=== PATIENT | female | born 1990 | race Caucasian/White ===

== ENCOUNTER 2016-12-01 16:31 | Emergency (ER) | payer OTHER ==
[~2016-12-01] VITALS: Ht 144.8 cm; Wt 90.3 kg
[~2016-12-01 16:31] MED LIST: DOCU-67 PO; IBUP-2213 PO; METO-485 PO; OMEP40EC1 PO; ONDA4TAB PO; PREN-385 PO; TYL3 PO
[2016-12-01 16:54] VITALS: BP 126/75
[2016-12-01] MEDS ORDERED: TOPI25TA10 PO (16:58)
--- NOTE | 2016-12-01 19:00 | NUR ---
PATIENT PRESENTS TO ED WITH LEFT SIDED HEADACHE AND N/V X4 DAYS . PT STATES [HEAVY VAGINAL BLEEDING YESTERDAY > 10 [facility] [place]/DAY SKIN IS PINK/WARM/DRY; AAOX4 WITH EVEN AND STEADY GAIT; LUNGS CLEAR BL; HR EVEN AND REGULAR; PT DENIES ANY FEVER, CP, SOB, OR COUGH AT THIS TIME; PATIENT STATES PAIN OF 9/10 AT THIS TIME; VSS; PATIENT POSITIONED FOR COMFORT; HOB ELEVATED; BEDRAILS UP X2; BED DOWN. ER MD MADE AWARE OF PT STATUS.
--- NOTE | 2016-12-01 19:25 | NUR ---
ASSUMED CARE OF PT. COND WITH OUT CHANGE. PT VOMITING. C/O OF HEADACHE 06/04.
--- NOTE | 2016-12-01 19:34 | NUR ---
Dr. Elena evaluating patient at bedside.
[2016-12-01] MEDS ORDERED: PROCHLORPERAZINE 10 MG/2 ML VIAL IVP ONE (19:50)
[2016-12-01] MEDS ORDERED: diphenhydrAMINE 50 MG/ML VIAL IVP ONE (19:50)
[2016-12-01] MEDS ORDERED: NACL 0.9% 1,000 ML IV ONE (19:50)
--- NOTE | 2016-12-01 22:15 | NUR ---
Chart checked and completed. The patient's care was reviewed and supervised by Kaz Whitley RN.
--- NOTE | 2016-12-01 22:15 | NUR ---
Patient discharged with v/s stable. Written and verbal after care instructions given and explained. Patient alert, oriented and verbalized understanding of instructions. Ambulatory with steady gait. All questions addressed prior to discharge. ID band removed. Patient advised to follow up with PMD. Rx of OMEPRAZOLE 40 MG, COMPAZINE 10 MG, BENADRYL 25 MG given. Patient educated on indication of medication including possible reaction and side effects. Opportunity to ask questions provided and answered.
[2016-12-01 22:16] VITALS: BP 126/84
== END 2016-12-01 22:15 | disposition home or self-care (01) ==
LOC: MED 16:31
DX: G43.909 Migraine, unspecified, not intractable, without status migrainosus (principal); R03.0 Elevated blood-pressure reading, without diagnosis of hypertension
CPT/HCPCS: 96361; 96374; 96375; 99284; J0780; J1200; J7030

== ENCOUNTER 2016-12-31 15:50 | Inpatient (IN) | payer OTHER ==
[~2016-12-31] VITALS: Ht 144.8 cm; Wt 89.4 kg
[~2016-12-31 15:50] MED LIST changes: -DOCU-67 PO; -METO-485 PO; -OMEP40EC1 PO; -PREN-385 PO; +TOPI25TA10 PO; -TYL3 PO
[2016-12-31 15:59] VITALS: BP 110/71
--- NOTE | 2016-12-31 18:29 | NUR ---
Patient ambulated to bed 4. RN evaluating patient at bedside.
--- NOTE | 2016-12-31 18:36 | NUR ---
PATIENT PRESENTS TO ED WITH C/O DIARRHEA 4X "IN HER PANTS" WITH "RAPID HEART RATE" X1 DAY . PT STATES SHE HAS HEADACHE;SKIN IS PINK/WARM/DRY; AAOX4 WITH EVEN AND STEADY GAIT; LUNGS CLEAR BL; HR EVEN AND REGULAR; PT DENIES ANY CP, SOB, OR COUGH AT THIS TIME; PATIENT STATES PAIN OF 10/10 AT THIS TIME; VSS; PATIENT POSITIONED FOR COMFORT; HOB ELEVATED; BEDRAILS UP X2; BED DOWN. ER MD MADE AWARE OF PT STATUS.
[2016-12-31] MEDS ORDERED: PROMETHAZINE 25 MG/ML VIAL IM ONE (18:50)
[2016-12-31] MEDS ORDERED: KETOROLAC 30 MG/ML VIAL IM SCH (19:25)
--- NOTE | 2016-12-31 19:46 | NUR ---
Pt report given to ROSALBA HATFIELD. Transfer of care at this time.
--- NOTE | 2016-12-31 20:00 | NUR ---
SPOKE TO HELEN MENJIVAR, ORDERED TORADOL 30MG IM, MED DOES NOT SHOW IN EMAR. HELEN MENJIVAR WILL LOOK INTO WHY IT DOES NOT SHOW IN EMAR, WILL OVERRIDE PYXIS
--- NOTE | 2016-12-31 20:06 | NUR ---
TORADOL 30MG/1ML IM ADMINISTERED AT 2000 TO RIGHT DELTOID
[2016-12-31] MEDS ORDERED: KETOROLAC 30 MG/ML VIAL ONE (20:08)
--- NOTE | 2016-12-31 20:30 | NUR ---
TORADOL 30MG/1ML, REASSESS NADR AT THIS TIME 2030
[2016-12-31 20:32] LABS: HEMATOCRIT 39.7 % (36-48); HEMOGLOBIN 13.2 g/dL (12.0-16.0); MEAN CORPUSCULAR HEMOGLOBIN 27 pg (27-31); MEAN CORPUSCULAR HGB CONC 33 g/dL (33-37); MEAN CORPUSCULAR VOLUME 81 fL (80-94); PLATELET COUNT (AUTO) 250 K/uL (140-450); RED BLOOD CELL COUNT(AUTO) 4.91 MIL/uL (4.20-5.40); RED CELL DISTRIBUTION WIDTH 12.8 % (11.6-13.7); WHITE BLOOD COUNT (AUTO) 12.8 K/uL (4.8-10.8)
[2016-12-31 20:44] LABS: BAND % (MANUAL) 7 % (0-8); LYMPHOCYTES % (MANUAL) 12 % (20-46); MONOCYTES % (MANUAL) 3 % (5-12); NEUTROPHILS % (MANUAL) 78 (43-65); PLATELET ESTIMATE ADEQUATE
[2016-12-31 20:45] LABS: CALCIUM 7.4 mg/dL (8.5-10.1); CARBON DIOXIDE 26.2 mmol/L (21-32); CREATININE 0.6 mg/dL (0.6-1.3)
[2016-12-31 20:52] LABS: ANION GAP 11.4 (8-16); POTASSIUM 2.6 mmol/L (3.5-5.1)
[2016-12-31] MEDS ORDERED: NACL 0.9% 1,000 ML IV ONE ×2 (20:55)
--- NOTE | 2016-12-31 21:01 | NUR ---
iv 20ga rt a/c done, blood for c&s x 2 sent to lab.
[2016-12-31 21:14] LABS: BILIRUBIN,DIRECT 0.1 mg/dL (0.0-0.3); TOTAL BILIRUBIN 0.4 mg/dL (0.0-1.0); TOTAL PROTEIN, SERUM 6.9 g/dL (6.4-8.2)
[2016-12-31] MEDS ORDERED: KCL 20 MEQ/WATER INJ PREMIX 100 ML IV ONE (21:15)
--- NOTE | 2016-12-31 21:18 | NUR ---
pt sent to ct with tech aaox4.
[2016-12-31 21:23] LABS: INR 1.2 (0.8-1.2); PROTHROMBIN TIME 11.1 secs (10.8-13.4)
[2016-12-31 21:29] LABS: APPEARANCE,URINE CLEAR (CLEAR); BILIRUBIN,URINE NEGATIVE (NEGATIVE); BLOOD, URINE NEGATIVE (NEGATIVE); COLOR,URINE YELLOW (YELLOW); LEUKOCYTE ESTERASE ,URINE NEGATIVE (NEGATIVE); NITRITE, URINE NEGATIVE (NEGATIVE); PH,URINE 6.5 (5.0-9.0); PROTEIN,URINE TRACE (NEGATIVE); UGLUCOSE NEGATIVE (NEGATIVE); UROBILINOGEN,URINE 0.2 EU/dL (0.2 - 1)
[2016-12-31 21:32] LABS: LACTIC ACID 0.7 mmol/L (0.4-2.0)
[2016-12-31 21:40] LABS: BACTERIA,URINE FEW /HPF (None Seen); MUCUS,URINE 1+ /LPF (None Seen); RBC,URINE 0-5 /HPF (0-5); WBC,URINE 0-5 /HPF (0-5)
[2016-12-31] MEDS ORDERED: diphenhydrAMINE 50 MG/ML VIAL IVP ONE (22:15)
[2016-12-31] MEDS ORDERED: METOCLOPRAMIDE 10 MG/2 ML INJ VIAL IVP ONE (22:15)
[2016-12-31] MEDS ORDERED: ACETAMINOPHEN 325 MG TAB PO PRN (22:30)
[2016-12-31] MEDS ORDERED: ONDANSETRON 4 MG/2 ML VIAL IVP PRN (22:30)
[2016-12-31] MEDS ORDERED: POTASSIUM CHLORIDE 10 MEQ TABER PO SCH (22:30)
[2016-12-31 22:48] LABS: AMPHETAMINE, URINE NEGATIVE ng/ml (NEG <=1000); BARBITURATE, URINE NEGATIVE ng/ml (NEG <=200); BENZODIAZEPINE, URINE NEGATIVE ng/mL (NEG <=200); CANNABINOID, URINE NEGATIVE ng/mL (NEG <=50); COCAINE, URINE NEGATIVE ng/mL (NEG <=300); OPIATE, URINE NEGATIVE ng/mL (NEG <=2000); PHENCYCLIDINE SCREEN,URINE NEGATIVE ng/mL (NEG <=25)
--- NOTE | 2016-12-31 22:54 | NUR ---
Patient will be admitted to care of DR REYES. Admited to [facility]. Will go to [facility]. Belongings list completed. Report to RAO.
[2016-12-31 23:15] VITALS: BP 100/67
--- NOTE | 2016-12-31 23:30 | NUR ---
ADMITTED A PATIENT FROM ER. TRANSPORTED VIA GURNEY ACCOMPANIED BY ER STAFF AND BOYFRIEND. PATIENT IS AAOX4, DENIES PAIN AT THIS TIME. ON ROOM AIR, HAS NO S/S OF RESPIRATORY DISTRESS/DISCOMFORT NOTED. IV SITE IS PATENT AND INTACT. SKIN CHECKING DONE WITH THE CHARGE NURSE. IB BAND UPDATED. PROVIDED HEALTH TEACHING, ROOM ORIENTATION DONE, PLAN OF CARE DISCUSSED, VERBALIZED UNDERSTANDING. SAFETY MEASURES INITIATED, CALL LIGHT WITHIN REACH. WILL CONTINUE TO MONITOR.
[2016-12-31] MEDS: NACL 0.9% 1,000 ML IV SCH (23:59)
--- NOTE | 2017-01-01 01:35 | NUR ---
EYES CLOSED, BREATHING EVEN AND UNLABORED. NO SOB. IV SITE IS PATEN AND INFUSING WELL. CALL LIGHT WITHIN EACH.
--- NOTE | 2017-01-01 02:29 | NUR ---
EYES CLOSED, BREATHING EVEN AND UNLABORED. ON ROM AIR, HAS NO S/S OF RESPIRATORY DISTRESS/DISCOMFORT NOTED. CALL LIGHT WITHIN REACH.
[2017-01-01 04:00] VITALS: BP 93/55
--- NOTE | 2017-01-01 04:27 | NUR ---
PT IS CALM, QUIETLY SLEEPING. NO SOB NOTED. IV FLUID INFUSING WELL. CALL LIGHT WITH REACH.
[2017-01-01 07:01] LABS: BASOPHILS % (AUTO) 0.3 % (0.0-2.0); EOSINOPHILS # (AUTO) 0.2 K/uL (0-0.4); EOSINOPHILS % (AUTO) 1.9 % (0.0-4.0); HEMATOCRIT 35.4 % (36-48); HEMOGLOBIN 11.7 g/dL (12.0-16.0); LYMPHOCYTES # (AUTO) 1.6 K/uL (2.5-16.5); LYMPHOCYTES % (AUTO) 19.2 % (20.5-51.1); MEAN CORPUSCULAR HEMOGLOBIN 27 pg (27-31); MEAN CORPUSCULAR HGB CONC 33 g/dL (33-37); MEAN CORPUSCULAR VOLUME 81 fL (80-94); MONOCYTES # (AUTO) 0.6 K/uL (0.8-1.0); MONOCYTES % (AUTO) 6.6 % (1.7-9.3); NEUTROPHILS # (AUTO) 6.2 K/uL (1.8-7.7); PLATELET COUNT (AUTO) 197 K/uL (140-450); RED BLOOD CELL COUNT(AUTO) 4.39 MIL/uL (4.20-5.40); RED CELL DISTRIBUTION WIDTH 12.9 % (11.6-13.7); WHITE BLOOD COUNT (AUTO) 8.6 K/uL (4.8-10.8)
--- NOTE | 2017-01-01 07:26 | NUR ---
REPORT GIVEN TO DAY SHIFT NURSE FOR CONTINUITY OF CARE. PT IN STABLE CONDITION.
--- NOTE | 2017-01-01 07:26 | NUR ---
RECEIVED REPORT FROM NIGHT NURSE, PT IS AAOX4, ON ROOM AIR, IV TO RIGHT AC 20G INFUSING WELL, SKIN INTACT, PT STATES NO NAUSEA AT THIS TIME. INITIAL ASSESSMENT COMPLETED, REVIEWED PLAN OF CARE WITH PT, PT VERBALIZED UNDERSTANDING, ALL SAFETY PRECAUTIONS MET. CALL LIGHT WITHIN REACH, WILL CONTINUE TO MONITOR.
[2017-01-01 07:32] LABS: ALBUMIN 2.4 g/dL (3.4-5.0); ANION GAP 9.2 (8-16); CALCIUM 7.1 mg/dL (8.5-10.1); CARBON DIOXIDE 25.8 mmol/L (21-32); CREATININE 0.6 mg/dL (0.6-1.3); TOTAL BILIRUBIN 0.2 mg/dL (0.0-1.0); TOTAL PROTEIN, SERUM 5.7 g/dL (6.4-8.2)
[2017-01-01 07:53] VITALS: BP 110/71
[2017-01-01] MEDS: NACL 0.9% 1,000 ML IV SCH ×2 (08:28→18:16)
[2017-01-01] MEDS ORDERED: ACETAMINOPHEN 325 MG TAB PO PRN (08:50)
[2017-01-01] MEDS ORDERED: DOCUSATE SODIUM 100 MG GELCAP PO PRN (08:50)
[2017-01-01] MEDS: ENOXAPARIN 40 MG/0.4 ML SYR SUBQ SCH (09:00)
[2017-01-01] MEDS ORDERED: FAMOTIDINE 20 MG TAB PO SCH (09:02)
[2017-01-01] MEDS: MORPHINE SULFATE 2 MG/ML SYR IVP PRN ×3 (09:04→20:09)
[2017-01-01] MEDS ORDERED: POTASSIUM CHLORIDE 20% 40 MEQ/15 ML UDC PO SCH (09:06)
[2017-01-01] MEDS ORDERED: KCL 20 MEQ/WATER INJ PREMIX 100 ML IV SCH (09:08)
--- NOTE | 2017-01-01 09:13 | NUR ---
PATIENT HAS BEEN SCREENED AND CATEGORIZED HIGH NUTRITION RISK. PATIENT WILL BE SEEN WITHIN 1-2 DAYS OF ADMISSION. 01/01/17-01/02/[address]
[2017-01-01] MEDS: PANTOPRAZOLE 40 MG INJ VIAL IVP SCH (09:27)
--- NOTE | 2017-01-01 09:27 | NUR ---
DUE MEDICATIONS GIVEN, PT TOLERATED WELL. ALLNEEDS MET. CALL LIGHT WITHIN RAECH. WILL CONTINUE TO MONITOR.
--- NOTE | 2017-01-01 09:46 | NUR ---
CM NOTE PER SANDER AND POLISHER MAEGAN EXT [id number], SEND REVIEWS TO BOTH [facility] AND [facility]. SENT INITIAL REVIEW TO [facility] FAX# [phone] PH# JANUARY [phone] AND TO [facility] FAX# [phone] PH# [phone]
--- NOTE | 2017-01-01 11:37 | NUR ---
CHECKED IN ON PT, PT CURRENTLY VISITING WITH FAMILY MEMBER. ALL NEEDS MET. CALL LIGHT WITHIN REACH. WILL CONTINUE TO MONITOR.
[2017-01-01 13:09] LABS: FREE T4 (FREE THYROXINE) 1.1 ng/dL (0.76-1.46); THYROID STIMULATING HORMONE 1.87 uIU/mL (0.34-3.76)
--- NOTE | 2017-01-01 13:16 | NUR ---
01/01/17 RD INITIAL ASSESSMENT COMPLETED PLEASE REFER TO NUTRITION ASSESSMENT UNDER CARE ACTIVITY FOR ESTIMATED NUTRITIONAL NEEDS. 1. WHEN MEDICALLY FEASIBLE, INITIATE ORAL DIET TO START ON CLEAR LIQUIDS DIET AND ADVANCE TOLERATED TO REGULAR DIET 2. RD TO FOLLOW-UP 2-3 DAYS; HIGH RISK NESTOR LOW, KARINA
--- NOTE | 2017-01-01 14:25 | NUR ---
PT CURRENTLY RESTING IN BED. ALL NEEDS MET. CALL LIGHT WITHIN REACH.
[2017-01-01] MEDS: ONDANSETRON 4 MG/2 ML VIAL IVP PRN (15:59)
[2017-01-01 16:00] VITALS: BP 110/74
--- NOTE | 2017-01-01 16:25 | NUR ---
PT STATES SHE HAD 4 EPISODES OF DIARRHEA, MD NOTIFIED.
[2017-01-01] MEDS ORDERED: LORazepam 2 MG/ML VIAL IVP PRN (17:00)
--- NOTE | 2017-01-01 17:57 | NUR ---
MEDICAL RECORDS WAS REQUESTED FROM [facility] [phone] (FAX)
--- NOTE | 2017-01-01 19:15 | NUR ---
ENDORSED PLAN OF CARE TO NIGHT NURSE, PT IN STABLE CONDITION.
--- NOTE | 2017-01-01 19:16 | NUR ---
RECEIVED REPORT FROM DAY RN FOR CONTINUITY OF CARE. PATIENT IS A&OX4, DISCUSSED PLAN OF CARE WITH PATIENT, VERBALIZED UNDERSTANDING. SHIFT ASSESSMENT DONE, VS TAKEN, STABLE. NO S/S OF RESPIRATORY DISTRESS NOTED ON ROOM AIR. PATIENT STATES 7/10 PAIN AT THIS TIME, WILL MEDICATE PER MD ORDER. IV TO RT AC 20 GAUGE PATENT AND INFUSING FLUIDS WELL. PT DENIES NAUSEA/VOMITING AT THIS TIME. EXPLAINED TO PT ABOUT STOOL SAMPLE NEEDED, VERBALIZED UNDERSTANDING. SAFETY PRECAUTIONS ENFORCED. FAMILY MEMBERS AT BEDSIDE. CALL LIGHT WITHIN REACH. WILL CONTINUE TO MONITOR.
[2017-01-01 20:00] VITALS: BP 104/73
--- NOTE | 2017-01-01 20:09 | NUR ---
PT C/O 03/04 PAIN, MEDICATED PER MD ORDER. CALL LIGHT WITHIN REACH. WILL CONTINUE TO MONITOR.
--- NOTE | 2017-01-01 22:00 | NUR ---
PT IS RESTING IN BED, DENIES N/V/D AT THIS TIME. CALL LIGHT IN REACH.
--- NOTE | 2017-01-01 23:57 | NUR ---
VS TAKEN, STABLE. PT C/O ABDOMINAL PAIN, WILL MEDICATE PER MD ORDER.
[2017-01-02] VITALS: BP 114/70
[2017-01-02] MEDS: ONDANSETRON 4 MG/2 ML VIAL IVP PRN ×4 (00:13→19:52)
[2017-01-02] MEDS: MORPHINE SULFATE 2 MG/ML SYR IVP PRN ×5 (00:13→19:52)
--- NOTE | 2017-01-02 01:50 | NUR ---
PATIENT IS SLEEPING. NO S/S OF DISTRESS NOTED. WILL CONTINUE TO MONITOR.
[2017-01-02] MEDS: NACL 0.9% 1,000 ML IV SCH ×3 (01:51→17:12)
--- NOTE | 2017-01-02 04:28 | NUR ---
PT C/O PAIN, VS TAKEN AND STABLE. MEDICATED PER MD ORDER.
--- NOTE | 2017-01-02 05:30 | NUR ---
SPOKE TO DR. CUELLO REGARDING PT COMPLAINT OF MIGRAINE, PER DR ABIGAIL BURGESS.
[2017-01-02 05:36] LABS: BASOPHILS % (AUTO) 0.5 % (0.0-2.0); EOSINOPHILS # (AUTO) 0.2 K/uL (0-0.4); EOSINOPHILS % (AUTO) 2.3 % (0.0-4.0); HEMATOCRIT 33.2 % (36-48); HEMOGLOBIN 10.7 g/dL (12.0-16.0); LYMPHOCYTES # (AUTO) 1.6 K/uL (2.5-16.5); LYMPHOCYTES % (AUTO) 19.2 % (20.5-51.1); MEAN CORPUSCULAR HEMOGLOBIN 26 pg (27-31); MEAN CORPUSCULAR HGB CONC 32 g/dL (33-37); MEAN CORPUSCULAR VOLUME 82 fL (80-94); MONOCYTES # (AUTO) 0.4 K/uL (0.8-1.0); MONOCYTES % (AUTO) 4.8 % (1.7-9.3); NEUTROPHILS # (AUTO) 5.9 K/uL (1.8-7.7); NEUTROPHILS % (AUTO) 73.2 % (42.2-75.2); PLATELET COUNT (AUTO) 230 K/uL (140-450); RED BLOOD CELL COUNT(AUTO) 4.08 MIL/uL (4.20-5.40); RED CELL DISTRIBUTION WIDTH 13.1 % (11.6-13.7); WHITE BLOOD COUNT (AUTO) 8.1 K/uL (4.8-10.8)
[2017-01-02 06:25] LABS: MAGNESIUM 1.7 mg/dL (1.8-2.4); PHOSPHORUS 3.2 mg/dL (2.5-4.9)
[2017-01-02 06:37] LABS: ANION GAP 11.6 (8-16); CALCIUM 7.7 mg/dL (8.5-10.1); CARBON DIOXIDE 25.9 mmol/L (21-32); CREATININE 0.5 mg/dL (0.6-1.3); POTASSIUM 3.5 mmol/L (3.5-5.1)
--- NOTE | 2017-01-02 07:10 | NUR ---
RECEIVED REPORT FROM NIGHT NURSE, PT IS AAOX4, ON ROOM AIR, IV TO RIGHT AC 20G INFUSING WELL, SKIN INTACT, PT SITTING ON BED, PT C/O NAUSEA WILL MEDICATE PER MD ORDERS, AT BEDSIDE. INITIAL ASSESSMENT COMPLETED, REVIEWED PLAN OF CARE WITH PT, PT VERBALIZED UNDERSTANDING, ALL SAFETY PRECAUTIONS MET. CALL LIGHT WITHIN REACH, WILL CONTINUE TO MONITOR.
--- NOTE | 2017-01-02 07:10 | NUR ---
ENDORSED PATIENT TO DAY RN FOR CONTINUITY OF CARE, PATIENT IS IN STABLE CONDITION.
[2017-01-02] MEDS ORDERED: MAGNESIUM OXIDE 400 MG TAB PO SCH ×2 (07:30→09:20)
[2017-01-02 08:00] VITALS: BP 116/78
[2017-01-02] MEDS: FAMOTIDINE 20 MG TAB PO SCH (08:44)
[2017-01-02] MEDS: PANTOPRAZOLE 40 MG INJ VIAL IVP SCH (08:45)
--- NOTE | 2017-01-02 08:45 | NUR ---
DUE MEDICATIONS GIVEN. PT TOLERATED WELL. ALL NEEDS MET. CALL LIGHT WITHIN REACH. WILL CONTINUE TO MONITOR. .
[2017-01-02] MEDS: ENOXAPARIN 40 MG/0.4 ML SYR SUBQ SCH (08:58)
--- NOTE | 2017-01-02 10:13 | NUR ---
CM NOTE SENT CONCURRENT REVIEW TO [facility] FAX# [phone] PH# JANUARY [phone] AND TO [facility] FAX# [phone] PH# [phone]
--- NOTE | 2017-01-02 11:45 | NUR ---
PT CURRENTLY RESTING IN BED, FAMILY AT BEDSIDE. ALL NEEDS MET. CALL LIGHT WITHIN REACH. WILL CONTINUE TO MONITOR.
--- NOTE | 2017-01-02 13:09 | NUR ---
PT CURRENTLY EATING LUNCH, PT STATES SHE IS ABLE TO DRINK THE COFFEE BUT DOES NOT LIKE THE FOOD, ENCOURAGE PT TO EAT TOLERATED, PT VERBALIZED UNDERSTANDING. WILL CONTINUE TO MONITOR.
--- NOTE | 2017-01-02 15:45 | NUR ---
PT CURRENTLY VISITING WITH FAMILY MEMBERS. ALL NEEDS MET.CALL LIGHT WITHIN [facility]. WILL CONTINUE TO MONITOR.
[2017-01-02 15:54] LABS: CHOL/HDL RATIO 5.1 (1-4.5)
[2017-01-02 16:00] VITALS: BP 131/83
--- NOTE | 2017-01-02 17:25 | NUR ---
CHECKED IN ON PT, NO S/S OF DISTRESS OR DISCOMFORT NOTED. ALL NEEDS MET.
--- NOTE | 2017-01-02 19:15 | NUR ---
ENDORSED PLAN OF CARE TO NIGHT NURSE , PT ON STABLE CONDITION.
--- NOTE | 2017-01-02 19:16 | NUR ---
RECEIVED REPORT FROM DAY RN FOR CONTINUITY OF CARE. PATIENT IS A&OX4, DISCUSSED PLAN OF CARE WITH PATIENT AND FAMILY MEMBERS AT BEDSIDE, VERBALIZED UNDERSTANDING. SHIFT ASSESSMENT DONE, VS TAKEN, STABLE. NO S/S OF RESPIRATORY DISTRESS NOTED ON ROOM AIR. PATIENT STATES ABDOMINAL PAIN AND NAUSEA, WILL MEDICATE PER MD ORDER. IV TO RT AC 20 GAUGE PATENT AND INFUSING FLUIDS WELL. SAFETY PRECAUTIONS ENFORCED. CALL LIGHT WITHIN REACH. WILL CONTINUE TO MONITOR.
--- NOTE | 2017-01-02 19:52 | NUR ---
PT C/O ABDOMINAL PAIN AND VOMITING X1, MEDICATED PER MD ORDER. VS STABLE.
[2017-01-02 20:00] VITALS: BP 136/68
--- NOTE | 2017-01-02 22:10 | NUR ---
PT IS RESTING IN BED. DENIES NAUSEA/VOMITING AT THIS TIME. WILL CONTINUE TO MONITOR.
[2017-01-03] VITALS: BP 112/70
[2017-01-03] MEDS: MORPHINE SULFATE 2 MG/ML SYR IVP PRN ×3 (00:34→09:20)
--- NOTE | 2017-01-03 00:34 | NUR ---
IV TO RT AC INFILTRATED, REMOVED WITH CANNULA INTACT. NEW IV LINE INSERTION TO LT HAND 24 GAUGE PATENT AND INFUSING FLUIDS WELL. PT C/O ABDOMINAL PAIN, MEDICATED PER MD ORDER.
[2017-01-03] MEDS: NACL 0.9% 1,000 ML IV SCH ×2 (01:14→08:36)
--- NOTE | 2017-01-03 02:11 | NUR ---
PATIENT IS SLEEPING. NO S/S OF DISTRESS OR DISCOMFORT NOTED. WILL CONTINUE TO MONITOR.
--- NOTE | 2017-01-03 04:00 | NUR ---
PATIENT IS SLEEPING, NO S/S OF DISTRESS NOTED. IV INFUSING FLUIDS WELL. WILL CONTINUE TO MONITOR.
[2017-01-03] MEDS: ONDANSETRON 4 MG/2 ML VIAL IVP PRN ×2 (05:33→10:47)
--- NOTE | 2017-01-03 05:33 | NUR ---
PT C/O PAIN, MEDICATED PER MD ORDER. WILL CONTINUE TO MONITOR.
[2017-01-03 06:39] LABS: BASOPHILS % (AUTO) 0.3 % (0.0-2.0); EOSINOPHILS # (AUTO) 0.2 K/uL (0-0.4); EOSINOPHILS % (AUTO) 2.6 % (0.0-4.0); HEMATOCRIT 32.1 % (36-48); HEMOGLOBIN 10.4 g/dL (12.0-16.0); LYMPHOCYTES # (AUTO) 2.6 K/uL (2.5-16.5); LYMPHOCYTES % (AUTO) 31.3 % (20.5-51.1); MEAN CORPUSCULAR HEMOGLOBIN 26 pg (27-31); MEAN CORPUSCULAR HGB CONC 32 g/dL (33-37); MEAN CORPUSCULAR VOLUME 82 fL (80-94); MONOCYTES # (AUTO) 0.4 K/uL (0.8-1.0); MONOCYTES % (AUTO) 5.1 % (1.7-9.3); NEUTROPHILS # (AUTO) 5.1 K/uL (1.8-7.7); NEUTROPHILS % (AUTO) 60.7 % (42.2-75.2); PLATELET COUNT (AUTO) 240 K/uL (140-450); RED BLOOD CELL COUNT(AUTO) 3.94 MIL/uL (4.20-5.40); WHITE BLOOD COUNT (AUTO) 8.3 K/uL (4.8-10.8)
[2017-01-03 07:14] LABS: ANION GAP 11.8 (8-16); CALCIUM 7.9 mg/dL (8.5-10.1); CARBON DIOXIDE 27.5 mmol/L (21-32); CREATININE 0.4 mg/dL (0.6-1.3); POTASSIUM 3.3 mmol/L (3.5-5.1)
--- NOTE | 2017-01-03 07:20 | NUR ---
ENDORSED PATIENT TO DAY RN FOR CONTINUITY OF CARE, PATIENT IS IN STABLE CONDITION.
--- NOTE | 2017-01-03 07:22 | NUR ---
RECEIVED REPORT FROM BLACK TOP MACHINE OPERATOR NURSE AT BEDSIDE. PT IS ALERT AWAKE AND ORIENTED. INTRODUCED OURSELVES AND UPDATED THE BOARD. PT C/O MIGRAINE HEADACHE, WILL ADMINISTER PAIN MED WHEN IT'S DUE. PT HAS IV ON L HAND 24G RUNNING NS@130 ML/HR. LBM ON 01/02. EXPLAINED TO PT PLAN FOR D/C TODAY. PT VERBALIZED UNDERSTANDING. PT HAS NO OTHER COMPLAINTS, NO N&V AT THIS TIME. CALL LIGHT WITHIN REACH. WILL CONTINUE TO MONITOR.
[2017-01-03 08:00] VITALS: BP 117/75
[2017-01-03] MEDS: FAMOTIDINE 20 MG TAB PO SCH (09:20)
[2017-01-03] MEDS: PANTOPRAZOLE 40 MG INJ VIAL IVP SCH (09:20)
[2017-01-03 09:21] LABS: MAGNESIUM 1.7 mg/dL (1.8-2.4); PHOSPHORUS 4.2 mg/dL (2.5-4.9)
--- NOTE | 2017-01-03 09:25 | NUR ---
ADMINISTERED MORNING MEDS. PT TOLERATED WELL. WILL CONTINUE TO MONITOR.
--- NOTE | 2017-01-03 11:25 | NUR ---
PT FEELING NAUSEATED. PT VOMITED EARLIER PER SPOUSE. ZOFRAN WAS ADMINISTERED EARLIER. WILL GET HER SOME SPRITE TO SOOTH THE STOMACH. FAMILY AT BEDSIDE.
[2017-01-03] MEDS ORDERED: ONDA4TAB PO (12:53)
[2017-01-03] MEDS ORDERED: IMO2 PO (12:53)
[2017-01-03] MEDS ORDERED: ACET-2863 PO (12:54)
[2017-01-03] MEDS ORDERED: DOCU-67 PO (12:55)
[2017-01-03] MEDS ORDERED: MAGNESIUM OXIDE 400 MG TAB PO SCH (13:00)
[2017-01-03] MEDS ORDERED: POTASSIUM CHLORIDE 10 MEQ TABER PO SCH (13:00)
--- NOTE | 2017-01-03 13:12 | NUR ---
CM NOTE SENT CONCURRENT REVIEW TO [facility] FAX# [phone] PH# JANUARY [phone] AND TO [facility] FAX# [phone] PH# [phone]
--- NOTE | 2017-01-03 13:45 | NUR ---
GAVE DISCHARGE INSTRUCTIONS. ANSWERED ALL QUESTIONS. PT VERBALIZED UNDERSTANDING. SIGNED APPROPRIATE DOCUMENTS. REMOVED IV, CANNULA INTACT. NO BLEEDING NOTED. REMOVED ALL ID BANDS. PT WILL GET DRESSED IN HER CLOTHES, GATHER HER BELONGINGS AND WILL LET US KNOW WHEN SHE IS READY TO LEAVE. WE WILL HAVE A WHEELCHAIR WAITING.
--- NOTE | 2017-01-03 14:00 | NUR ---
WHEELED PT OUT IN A WHEELCHAIR. SPOUSE TOOK ALL PERSONAL BELONGINGS AND WENT TO GET THE CAR. PT IN STABLE CONDITION.
== END 2017-01-03 14:00 | disposition home or self-care (01) | DRG 249 ==
LOC: MED 15:50 → MTU 22:31
PROVIDERS: ADMIT Family Medicine; ATTEND Family Medicine
DX: K52.9 Noninfective gastroenteritis and colitis, unspecified (principal); N17.0 Acute kidney failure with tubular necrosis; E43 Unspecified severe protein-calorie malnutrition; R56.9 Unspecified convulsions; R80.9 Proteinuria, unspecified; G43.909 Migraine, unspecified, not intractable, without status migrainosus; D64.9 Anemia, unspecified; E83.42 Hypomagnesemia; E87.6 Hypokalemia; E66.01 Morbid (severe) obesity due to excess calories; Z68.41 Body mass index [BMI] 40.0-44.9, adult
CPT/HCPCS: 36415; 71010; 80048; 80053; 80076; 80305; 81001; 82150; 83036; 83605; 83690; 83735; 83880; 84100; 84439; 84443; 85025; 85610; 87040; 87081; 87086; 93005; 96365; 96372; 96375; 99285; C9113; J1200; J1644; J1650; J1885; J2270; J2405; J2550; J2765; J3480; J7030

== ENCOUNTER 2017-03-15 14:53 | Emergency (ER) | payer OTHER ==
[~2017-03-15] VITALS: Ht 143.5 cm; Wt 85.5 kg
[~2017-03-15 14:53] MED LIST changes: +ACET-2863 PO; +DOCU-67 PO; +IMO2 PO; -TOPI25TA10 PO
[2017-03-15 14:58] VITALS: BP 126/71
--- NOTE | 2017-03-15 18:17 | NUR ---
Patient transferred to for further care. RN evaluating patient.
--- NOTE | 2017-03-15 18:39 | NUR ---
Patient transferred to bed 8 for further care. RN evaluating patient at bedside.
[2017-03-15] MEDS ORDERED: KETOROLAC 30 MG/ML VIAL IM ONE (19:20)
--- NOTE | 2017-03-15 19:20 | NUR ---
REPORT RECEIVED FROM ROSALBA ROSALES
[2017-03-15 19:56] LABS: BASOPHILS # (AUTO) 0.1 K/uL (0.00-0.22); EOSINOPHILS # (AUTO) 0.4 K/uL (0-0.4); EOSINOPHILS % (AUTO) 2.6 % (0.0-4.0); HEMATOCRIT 36.4 % (36-48); LYMPHOCYTES # (AUTO) 2.6 K/uL (2.5-16.5); LYMPHOCYTES % (AUTO) 19.3 % (20.5-51.1); MEAN CORPUSCULAR HEMOGLOBIN 26 pg (27-31); MEAN CORPUSCULAR HGB CONC 33 g/dL (33-37); MEAN CORPUSCULAR VOLUME 79 fL (80-94); MONOCYTES # (AUTO) 0.4 K/uL (0.8-1.0); MONOCYTES % (AUTO) 2.7 % (1.7-9.3); NEUTROPHILS # (AUTO) 10.1 K/uL (1.8-7.7); NEUTROPHILS % (AUTO) 74.4 % (42.2-75.2); PLATELET COUNT (AUTO) 284 K/uL (140-450); RED BLOOD CELL COUNT(AUTO) 4.62 MIL/uL (4.20-5.40); RED CELL DISTRIBUTION WIDTH 13.9 % (11.6-13.7); WHITE BLOOD COUNT (AUTO) 13.6 K/uL (4.8-10.8)
[2017-03-15 20:11] LABS: ANION GAP 10.9 (8-16); CALCIUM 8.2 mg/dL (8.5-10.1); CREATININE 0.6 mg/dL (0.6-1.3); POTASSIUM 3.9 mmol/L (3.5-5.1)
[2017-03-15 20:28] VITALS: BP 117/69
== END 2017-03-15 20:28 | disposition home or self-care (01) ==
LOC: MED 14:53
DX: R07.9 Chest pain, unspecified (principal); G43.909 Migraine, unspecified, not intractable, without status migrainosus; J45.909 Unspecified asthma, uncomplicated
CPT/HCPCS: 36415; 71010; 80048; 81002; 81025; 84484; 85025; 96372; 99285; J1885; Q0092; 93005

== ENCOUNTER 2017-03-24 00:59 | Emergency (ER) | payer OTHER ==
[~2017-03-24] VITALS: Ht 157.5 cm; Wt 86.2 kg
[2017-03-24 01:06] VITALS: BP 118/79
--- NOTE | 2017-03-24 01:44 | NUR ---
PATIENT PRESENTS TO ED WITH C/O VOMITTING X 1 HR. PER PT LAST USE OF MARIJUANA WAS AT MIDNIGHT FOR MIGRAINE HEADACHE. PT SKIN IS PINK/WARM/DRY; AAOX4 WITH EVEN AND STEADY GAIT; LUNGS CLEAR BL; HR EVEN AND REGULAR; PT DENIES ANY FEVER, CP, SOB, OR COUGH AT THIS TIME; PATIENT STATES PAIN OF 0/10 AT THIS TIME; VSS; PATIENT POSITIONED FOR COMFORT; HOB ELEVATED; BEDRAILS UP X2; BED DOWN. ER MD MADE AWARE OF PT STATUS.
[2017-03-24 02:15] LABS: HEMATOCRIT 39.8 % (36-48); HEMOGLOBIN 12.9 g/dL (12.0-16.0); MEAN CORPUSCULAR HEMOGLOBIN 26 pg (27-31); MEAN CORPUSCULAR HGB CONC 32 g/dL (33-37); MEAN CORPUSCULAR VOLUME 79 fL (80-94); PLATELET COUNT (AUTO) 278 K/uL (140-450); RED BLOOD CELL COUNT(AUTO) 5.02 MIL/uL (4.20-5.40); RED CELL DISTRIBUTION WIDTH 13.8 % (11.6-13.7); WHITE BLOOD COUNT (AUTO) 13.3 K/uL (4.8-10.8)
[2017-03-24 02:19] LABS: APPEARANCE,URINE HAZY (CLEAR); BILIRUBIN,URINE NEGATIVE (NEGATIVE); BLOOD, URINE NEGATIVE (NEGATIVE); COLOR,URINE YELLOW (YELLOW); LEUKOCYTE ESTERASE ,URINE NEGATIVE (NEGATIVE); NITRITE, URINE NEGATIVE (NEGATIVE); PROTEIN,URINE 1+ (NEGATIVE); UGLUCOSE NEGATIVE (NEGATIVE); UROBILINOGEN,URINE 0.2 EU/dL (0.2 - 1)
[2017-03-24] MEDS ORDERED: NACL 0.9% 1,000 ML IV ONE ×3 (02:20→04:30)
[2017-03-24 02:26] LABS: ANION GAP 13.2 (8-16); CALCIUM 8.1 mg/dL (8.5-10.1); CARBON DIOXIDE 25.6 mmol/L (21-32); CREATININE 0.8 mg/dL (0.6-1.3); POTASSIUM 3.8 mmol/L (3.5-5.1)
[2017-03-24 02:28] LABS: BAND % (MANUAL) 2 % (0-8); EOSINOPHILS % (MANUAL) 1 % (0-4); LYMPHOCYTES % (MANUAL) 20 % (20-46); MONOCYTES % (MANUAL) 1 % (5-12); NEUTROPHILS % (MANUAL) 76 (43-65)
--- NOTE | 2017-03-24 02:30 | NUR ---
Pt report given to sanchez aviles. Transfer of care at this time.
[2017-03-24 02:32] LABS: TOTAL BILIRUBIN 0.2 mg/dL (0.0-1.0); TOTAL PROTEIN, SERUM 7.7 g/dL (6.4-8.2)
[2017-03-24 02:33] LABS: RBC,URINE 0-5 (RARE) /HPF (0-5)
[2017-03-24 02:34] LABS: AMPHETAMINE, URINE NEG. ng/ml (NEG <=1000); BACTERIA,URINE 1+ /HPF (None Seen); BARBITURATE, URINE NEG. ng/ml (NEG <=200); BENZODIAZEPINE, URINE POS. ng/mL (NEG <=200); CANNABINOID, URINE POS. ng/mL (NEG <=50); COCAINE, URINE NEG. ng/mL (NEG <=300); OPIATE, URINE NEG. ng/mL (NEG <=2000); PHENCYCLIDINE SCREEN,URINE NEG. ng/mL (NEG <=25)
[2017-03-24 02:35] LABS: MUCUS,URINE 2+ /LPF (None Seen); SQUAMOUS EPITHELIAL CELL,UR 4-10 (MOD) /LPF (0-3 (FEW))
[2017-03-24 02:44] LABS: ALBUMIN 3.5 g/dL (3.4-5.0)
[2017-03-24 02:45] LABS: AMYLASE 43 U/L (25-115); LIPASE 104 U/L (73-393)
--- NOTE | 2017-03-24 02:45 | NUR ---
Pupils equal and reactive to light bilaterally. No facial droop noted. No smile deficit noted. Speech normal for patient. Patient is alert and oriented to person, place, time and event. Bilateral hand quality control coordinator equal. Bilateral foot push equal.
[2017-03-24 02:54] LABS: LACTIC ACID 2.4 mmol/L (0.4-2.0)
--- NOTE | 2017-03-24 03:30 | NUR ---
Patient appears to be resting comfortably in bed. Vital Signs within normal limits. Respirations even and unlabored.
[2017-03-24] MEDS ORDERED: cefTRIAXone 1,000 MG VIAL ONE (03:41)
--- NOTE | 2017-03-24 04:42 | NUR ---
ct with contrast signed by pt and rn traci. ct called, eta 10min
--- NOTE | 2017-03-24 05:08 | NUR ---
Patient taken to CT via [facility]
--- NOTE | 2017-03-24 05:32 | NUR ---
Patient back from CT via [facility].
--- NOTE | 2017-03-24 07:01 | NUR ---
Pupils equal and reactive to light bilaterally. No facial droop noted. No smile deficit noted. Speech normal for patient. Patient is alert and oriented to person, place, time and event. Bilateral hand double cut sawyer equal. Bilateral foot push equal.
[2017-03-24 07:13] VITALS: BP 118/65
== END 2017-03-24 07:13 | disposition home or self-care (01) ==
LOC: MED 00:59
DX: F19.10 Other psychoactive substance abuse, uncomplicated (principal); E86.0 Dehydration; J45.909 Unspecified asthma, uncomplicated
CPT/HCPCS: 36415; 70450; 71010; 74177; 80053; 80305; 81001; 81025; 82150; 83605; 83690; 85025; 87040; 87086; 93005; 96361; 96365; 99285; C1758; J0696; J7030; Q0092; Q9967

== ENCOUNTER 2017-08-15 15:15 | Emergency (ER) | payer OTHER ==
[~2017-08-15] VITALS: Ht 144.8 cm; Wt 83.5 kg
[~2017-08-15 15:15] MED LIST changes: +DOCU-299 PO; -DOCU-67 PO
[2017-08-15 15:31] VITALS: BP 113/82
--- NOTE | 2017-08-15 15:45 | NUR ---
CALLED L AND D PATIENT ACCEPTED FOR BABY WELLNESS CHECK.
--- NOTE | 2017-08-15 15:53 | NUR ---
PT TAKEN TO L&D VIA W/C AT THIS TIME; PT STATES " I JUST WANT TO MAKE SURE THE BABY IS OK AND I'M NOT IN LABOR"; ER MD DR. PAIZ NOTIFIED.
--- NOTE | 2017-08-15 19:30 | NUR ---
PATIENT STILL IN LOBBY , WAITING FOR BED IN STABLE CONDITION. NO RESPIRATORY DISTRESS.
--- NOTE | 2017-08-15 20:25 | NUR ---
PATIENT CALLED TO PUT ON BED NO ANSWER.PATIENT LEFT WITHOUT BEING SEEN BY DR. PARRISH. NO FURTHER CARE PROVIDED FOR PATIENT.
== END 2017-08-15 20:36 | disposition left against medical advice (07) ==
LOC: MLD 15:15 → UNDOADMOB 15:15 → MED 15:15 → EDSTATUS 15:59 → MED 20:36
DX: M54.5 Low back pain (principal); Z53.21 Procedure and treatment not carried out due to patient leaving prior to being seen by health care provider
CPT/HCPCS: 76801; 99281; Q0092

== ENCOUNTER 2018-03-14 17:43 | Emergency (ER) | payer OTHER ==
[~2018-03-14] VITALS: Ht 144.8 cm; Wt 78.9 kg
[2018-03-14 18:00] VITALS: BP 117/74
--- NOTE | 2018-03-14 18:50 | NUR ---
PATIENT PRESENTS TO ED WITH COMPLAINTS OF RASH. PATIENT STATES ITS ITCHY, ALL OVER LEGS AND ARMS. UPON INSPECTION NO DISTINCT RASH NOTED, SOME RED PRYOR BARELY VISIBLE ON INNER ASPECT OF FOREARMS. PATIENT WAS ASSISTED TO JENNIE, SITTING UP, X 1 BEDRAIL UP. ED MD MADE AWARE OF PATIENT STATUS.
--- NOTE | 2018-03-14 19:10 | NUR ---
PT SITTING IN BED, AWAKE, WILL CONTINUE TO MONITOR.
[2018-03-14] MEDS ORDERED: methylPREDNISolone SS 125 MG/2 ML VIAL IM ONE (20:00)
[2018-03-14 20:45] VITALS: BP 130/53
--- NOTE | 2018-03-14 20:45 | NUR ---
Patient discharged with v/s stable. Written and verbal after care instructions given and explained. Patient alert, oriented and verbalized understanding of instructions. Ambulatory with steady gait. All questions addressed prior to discharge. ID band removed. Patient advised to follow up with PMD. Rx of BENADRYL, PREDNISONE given. Patient educated on indication of medication including possible reaction and side effects. Opportunity to ask questions provided and answered.
== END 2018-03-14 20:45 | disposition home or self-care (01) ==
LOC: MED 17:43
DX: L50.9 Urticaria, unspecified (principal); J45.909 Unspecified asthma, uncomplicated; G43.909 Migraine, unspecified, not intractable, without status migrainosus
CPT/HCPCS: 96372; 99283; J2930

== ENCOUNTER 2018-09-16 21:12 | Inpatient (IN) | payer OTHER ==
[~2018-09-16] VITALS: Ht 144.8 cm; Wt 77.6 kg
[2018-09-16 23:02] VITALS: BP 119/75
[2018-09-16 23:03] LABS: BASOPHILS % (AUTO) 0.1 % (0.0-2.0); EOSINOPHILS # (AUTO) 0.2 K/uL (0-0.4); EOSINOPHILS % (AUTO) 2.1 % (0.0-4.0); HEMATOCRIT 38.7 % (36-48); LYMPHOCYTES # (AUTO) 2.3 K/uL (2.5-16.5); LYMPHOCYTES % (AUTO) 22.1 % (20.5-51.1); MEAN CORPUSCULAR HEMOGLOBIN 29 pg (27-31); MEAN CORPUSCULAR HGB CONC 34 g/dL (33-37); MEAN CORPUSCULAR VOLUME 86.1 fL (80-94); MONOCYTES # (AUTO) 0.4 K/uL (0.8-1.0); MONOCYTES % (AUTO) 3.9 % (1.7-9.3); NEUTROPHILS # (AUTO) 7.5 K/uL (1.8-7.7); NEUTROPHILS % (AUTO) 71.8 % (42.2-75.2); PLATELET COUNT (AUTO) 209 K/uL (140-450); RED CELL DISTRIBUTION WIDTH 14.3 % (11.6-13.7); WHITE BLOOD COUNT (AUTO) 10.4 K/uL (4.8-10.8)
[2018-09-16] MEDS ORDERED: FERR325E14 PO (23:11)
[2018-09-16] MEDS ORDERED: PREN-380 PO (23:11)
[2018-09-16] MEDS ORDERED: ACETAMINOPHEN 325 MG TAB PO PRN (23:40)
[2018-09-16] MEDS ORDERED: ACETAMINOPHEN 325 MG TAB ONE (23:51)
== END 2018-09-17 01:25 | disposition home or self-care (01) | DRG 566 ==
LOC: MLD 21:12 → EEVIPCON 21:41 → OBSVTOIN 21:41
PROVIDERS: ADMIT Obstetrics & Gynecology; ATTEND Obstetrics & Gynecology
DX: O26.892 Other specified pregnancy related conditions, second trimester (principal); R10.9 Unspecified abdominal pain; Z3A.21 21 weeks gestation of pregnancy
CPT/HCPCS: 36415; 76805; 81000; 85025; 85379; 86886; 86900; 86901; G0378; Q0092

== ENCOUNTER 2019-04-21 20:05 | Emergency (ER) | payer OTHER ==
[~2019-04-21] VITALS: Ht 144.8 cm; Wt 56.2 kg
[~2019-04-21 20:05] MED LIST changes: -ACET-2863 PO; -DOCU-299 PO; +FERR325E14 PO; -IBUP-2213 PO; -IMO2 PO; -ONDA4TAB PO; +PREN-380 PO
[2019-04-21 20:22] VITALS: BP 125/92
[2019-04-21 20:25] VITALS: BP 125/92
[2019-04-21] MEDS: NACL 0.9% 1,000 ML IV ONE (21:40)
[2019-04-21] MEDS: diphenhydrAMINE 50 MG/ML VIAL IVP ONE (21:41)
[2019-04-21] MEDS: PROCHLORPERAZINE 10 MG/2 ML VIAL IVP ONE (21:43)
== END 2019-04-21 23:58 | disposition home or self-care (01) ==
LOC: MED 20:05
DX: G43.909 Migraine, unspecified, not intractable, without status migrainosus (principal); J45.909 Unspecified asthma, uncomplicated; Z86.69 Personal history of other diseases of the nervous system and sense organs; Z79.899 Other long term (current) drug therapy
CPT/HCPCS: 70450; 81002; 81025; 96374; 96375; 99284; J0780; J1200; J7030

== ENCOUNTER 2019-09-28 16:59 | Emergency (ER) | payer OTHER ==
[~2019-09-28] VITALS: Ht 149.9 cm; Wt 80.3 kg
[2019-09-28 17:21] VITALS: BP 126/95
--- NOTE | 2019-09-28 18:56 | NUR ---
29YO F C/O RIGHT FACIAL PAIN SINCE THIS AM. PT STATES 10/10 SHARP, PRICKING PAIN, MOSTLY ON HER RIGHT EYE. PT ALSO WITH HEADACHE, NAUSEA AND VOMITING. PER PATIENT, SYMPTOMS STARTED AFTER TAKING PROMETHEZINE AND AZITHROMYCIN PRESCRIBED IN URGENT CARE YESTERDAY. DENIES FEVER AND . PERRL 4MM, NO NUMBNESS OF FACE. LUNGS CLEAR BL; HR EVEN AND REGULAR; VSS; PATIENT POSITIONED FOR COMFORT; HOB ELEVATED; BEDRAILS UP X2; BED DOWN. ER MD MADE AWARE OF PT STATUS. PMH: SEIZURE, MIGRAINE, ANXIETY NO MEDS TAKEN NKA
--- NOTE | 2019-09-28 19:10 | NUR ---
RECIVED REPORT FROM PAULETTE NAVARRETE.
--- NOTE | 2019-09-28 19:40 | NUR ---
FLU SWAB COLLECTED
[2019-09-28] MEDS ORDERED: ACETAMINOPHEN EXTRA STRENGTH 500 MG TAB PO ONE (19:45)
[2019-09-28] MEDS ORDERED: KETOROLAC 30 MG/ML VIAL ONE (19:48)
[2019-09-28] MEDS ORDERED: KETOROLAC 30 MG/ML VIAL IM ONE (19:50)
[2019-09-28] MEDS ORDERED: diphenhydrAMINE 50 MG/ML VIAL IM ONE (19:50)
--- NOTE | 2019-09-28 20:36 | NUR ---
PT RESTING IN BED EYES OPEN. TORADOL 30MG IM THAT WAS GIVEN FOR PAIN WAS EFFECTIVE. PAIN NOW AT 3/10.
--- NOTE | 2019-09-28 20:40 | NUR ---
PT LAB RESULT STATES NEGATIVE FOR A & B FLU.
[2019-09-28 21:05] VITALS: BP 126/95
--- NOTE | 2019-09-28 21:05 | NUR ---
Patient discharged with v/s stable. Written and verbal after care instructions given and explained. Patient alert, oriented and verbalized understanding of instructions. Ambulatory with steady gait. All questions addressed prior to discharge. ID band removed. Patient advised to follow up with PMD. Rx of SUDAFED given. Patient educated on indication of medication including possible reaction and side effects. Opportunity to ask questions provided and answered.
== END 2019-09-28 21:05 | disposition home or self-care (01) ==
LOC: MED 16:59
DX: T36.3X5A Adverse effect of macrolides, initial encounter (principal); J32.9 Chronic sinusitis, unspecified; J45.909 Unspecified asthma, uncomplicated; G43.909 Migraine, unspecified, not intractable, without status migrainosus; F41.9 Anxiety disorder, unspecified; Z88.2 Allergy status to sulfonamides
CPT/HCPCS: 87804; 96372; 99283; J1200; J1885

== ENCOUNTER 2019-10-26 22:14 | Emergency (ER) | payer OTHER ==
[~2019-10-26] VITALS: Ht 144.8 cm; Wt 80.1 kg
[2019-10-26 22:25] VITALS: BP 133/90
--- NOTE | 2019-10-26 22:28 | NUR ---
TO LOBBY A/W BED AMBULATORY
[2019-10-26 23:51] LABS: BASOPHILS # (AUTO) 0.1 K/uL (0.00-0.22); BASOPHILS % (AUTO) 0.8 % (0.0-2.0); EOSINOPHILS # (AUTO) 0.2 K/uL (0-0.4); EOSINOPHILS % (AUTO) 1.9 % (0.0-4.0); HEMATOCRIT 39.5 % (36-48); HEMOGLOBIN 13.5 g/dL (12.0-16.0); LYMPHOCYTES # (AUTO) 2.1 K/uL (2.5-16.5); LYMPHOCYTES % (AUTO) 26.2 % (20.5-51.1); MEAN CORPUSCULAR HEMOGLOBIN 28 pg (27-31); MEAN CORPUSCULAR HGB CONC 34 g/dL (33-37); MEAN CORPUSCULAR VOLUME 82.4 fL (80-94); MONOCYTES # (AUTO) 0.3 K/uL (0.8-1.0); MONOCYTES % (AUTO) 3.5 % (1.7-9.3); NEUTROPHILS # (AUTO) 5.5 K/uL (1.8-7.7); NEUTROPHILS % (AUTO) 67.6 % (42.2-75.2); PLATELET COUNT (AUTO) 157 K/uL (140-450); RED CELL DISTRIBUTION WIDTH 14.2 % (11.6-13.7); WHITE BLOOD COUNT (AUTO) 8.1 K/uL (4.8-10.8)
[2019-10-26 23:53] LABS: APPEARANCE,URINE CLEAR (CLEAR); BILIRUBIN,URINE NEGATIVE (NEGATIVE); BLOOD, URINE NEGATIVE (NEGATIVE); COLOR,URINE YELLOW (YELLOW); LEUKOCYTE ESTERASE ,URINE NEGATIVE (NEGATIVE); NITRITE, URINE NEGATIVE (NEGATIVE); UGLUCOSE NEGATIVE (NEGATIVE)
--- NOTE | 2019-10-27 00:08 | NUR ---
PT AMUBLATED TO ER BED 12
--- NOTE | 2019-10-27 00:26 | NUR ---
Ultrasound at bedside.
--- NOTE | 2019-10-27 00:50 | NUR ---
29 Y/O FEMALE C/O LOWER ABD PAIN X 2 DAYS. RATES PAIN 8/10 AND DESCRIBES IT PRESSURE AND STABBING. +N,V. ABD IS ROUND, SOFT, NONTENDER, ACTIVE BS.VSS. NKA. NO PMH.
[2019-10-27] MEDS ORDERED: KETOROLAC 30 MG/ML VIAL IM ONE (01:05)
[2019-10-27 01:48] VITALS: BP 126/92
--- NOTE | 2019-10-27 01:48 | NUR ---
Patient discharged with v/s stable. Written and verbal after care instructions about abdominal pain given and explained. Patient alert, oriented and verbalized understanding of instructions. Ambulatory with steady gait. All questions addressed prior to discharge. ID band removed. Patient advised to follow up with PMD. Rx of ibuprofen given. Patient educated on indication of medication including possible reaction and side effects. Opportunity to ask questions provided and answered.
== END 2019-10-27 01:48 | disposition home or self-care (01) ==
LOC: MED 22:14
DX: T83.84XA Pain due to genitourinary prosthetic devices, implants and grafts, initial encounter (principal); Y69 Unspecified misadventure during surgical and medical care; R10.9 Unspecified abdominal pain; J45.909 Unspecified asthma, uncomplicated; G43.909 Migraine, unspecified, not intractable, without status migrainosus; Z79.899 Other long term (current) drug therapy; Z30.432 Encounter for removal of intrauterine contraceptive device; Y92.89 Other specified places as the place of occurrence of the external cause
CPT/HCPCS: 36415; 76817; 81003; 81025; 84702; 85025; 86900; 86901; 96372; 99284; J1885; Q0092; 99283

== ENCOUNTER 2020-02-10 20:03 | Emergency (ER) | payer OTHER ==
[~2020-02-10] VITALS: Ht 144.8 cm; Wt 80.3 kg
[2020-02-10 20:07] VITALS: BP 97/69
[2020-02-10 20:44] LABS: BASOPHILS % (AUTO) 0.5 % (0.0-2.0); EOSINOPHILS # (AUTO) 0.2 K/uL (0-0.4); EOSINOPHILS % (AUTO) 2.6 % (0.0-4.0); HEMATOCRIT 38.7 % (36-48); HEMOGLOBIN 12.8 g/dL (12.0-16.0); LYMPHOCYTES # (AUTO) 1.7 K/uL (2.5-16.5); LYMPHOCYTES % (AUTO) 18.3 % (20.5-51.1); MEAN CORPUSCULAR HEMOGLOBIN 28 pg (27-31); MEAN CORPUSCULAR HGB CONC 33 g/dL (33-37); MEAN CORPUSCULAR VOLUME 85.1 fL (80-94); MONOCYTES # (AUTO) 0.4 K/uL (0.8-1.0); MONOCYTES % (AUTO) 4.1 % (1.7-9.3); NEUTROPHILS # (AUTO) 6.8 K/uL (1.8-7.7); NEUTROPHILS % (AUTO) 74.5 % (42.2-75.2); PLATELET COUNT (AUTO) 265 K/uL (140-450); RED BLOOD CELL COUNT(AUTO) 4.56 MIL/uL (4.20-5.40); RED CELL DISTRIBUTION WIDTH 13.4 % (11.6-13.7); WHITE BLOOD COUNT (AUTO) 9.1 K/uL (4.8-10.8)
[2020-02-10 20:46] LABS: ANION GAP 14.5 (8-16); CARBON DIOXIDE 27.3 mmol/L (21-32); CREATININE 0.6 mg/dL (0.6-1.3); POTASSIUM 3.8 mmol/L (3.5-5.1)
[2020-02-10 20:56] LABS: APPEARANCE,URINE CLEAR (CLEAR); BILIRUBIN,URINE NEGATIVE (NEGATIVE); BLOOD, URINE NEGATIVE (NEGATIVE); COLOR,URINE YELLOW (YELLOW); LEUKOCYTE ESTERASE ,URINE TRACE (NEGATIVE); NITRITE, URINE NEGATIVE (NEGATIVE); UGLUCOSE NEGATIVE (NEGATIVE)
[2020-02-10 21:19] LABS: RBC,URINE 0-5 /HPF (0-5)
[2020-02-10 21:42] VITALS: BP 97/69
== END 2020-02-10 21:42 | disposition home or self-care (01) ==
LOC: MED 20:03
DX: O23.40 Unspecified infection of urinary tract in pregnancy, unspecified trimester (principal); F41.0 Panic disorder [episodic paroxysmal anxiety]; J45.909 Unspecified asthma, uncomplicated; R56.9 Unspecified convulsions; Z79.899 Other long term (current) drug therapy; Z86.69 Personal history of other diseases of the nervous system and sense organs
CPT/HCPCS: 36415; 76801; 80048; 81001; 84702; 85025; 86900; 86901; 87086; 99284; Q0092